=== PATIENT | female | born 1995 | race Caucasian/White ===

== ENCOUNTER 2017-07-08 22:44 | Emergency (ER) | payer SELFPAY ==
[2017-07-09 02:17] LABS: BASOPHIL % 0.3 % (0-2); PLATELET COUNT 211 x10^3mcL (130-400); RED CELL DISTRIBUTION WIDTH 14.6 % (11.5-14.5)
[2017-07-09 02:22] LABS: CALCIUM 9.5 mg/dL (8.5-10.1); CARBON DIOXIDE 27.7 mmol/L (21-32); CHLORIDE SERUM 101 mmol/L (98-107); GFR1 > 60 mL/min; GLUCOSE SERUM 100 mg/dL (74-106); POTASSIUM SERUM 4.5 mmol/L (3.5-5.1); SODIUM SERUM 139 mmol/L (136-145)
[2017-07-09 02:26] LABS: ALBUMIN 4.3 g/dL (3.4-5.0); ALKALINE PHOSPHATASE 48 U/L (46-116); ALT/SGPT 28 U/L (14-59); AST/SGOT 27 U/L (15-37); BILIRUBIN TOTAL 0.82 mg/dL (0.20-1.00); LIPASE 100 IU/L (73-393)
[2017-07-09 02:27] LABS: AMYLASE 198 U/L (25-115); TOTAL PROTEIN, SERUM 8.6 g/dL (6.4-8.2)
[2017-07-09 04:23] VITALS: BP 107/54
== END 2017-07-09 04:23 | disposition home or self-care (01) ==
LOC: ED 22:44
PROVIDERS: Specialist
DX: R11.2 Nausea with vomiting, unspecified (principal)
CPT/HCPCS: 83880; J2405; J7030